=== PATIENT | male | born 1960 | race Two or more races ===

== ENCOUNTER 2019-12-20 12:50 | Inpatient (IN) | payer OTHER ==
[~2019-12-20] VITALS: Ht 170.2 cm; Wt 91.3 kg
[~2019-12-20 12:50] MED LIST: ASPI81CH43 PO; ATOR20TA PO; DIGO0.12 PO; HYDR12.56 PO; LISI2.5T47 PO
[2019-12-20] MEDS ORDERED: SODIUM CHLORIDE 0.9% 1,000 ML IV ONE ×2 (13:15→15:15)
[2019-12-20] MEDS ORDERED: cefTRIAXone 1GM/50ML D5W 50 ML IV ONE (13:30)
[2019-12-20] MEDS ORDERED: LIDOCAINE VISCOUS 2% 15ML UD MT ONE (13:45)
[2019-12-20 14:02] LABS: Basophils # (auto) 0 10 ^3/uL (0-0.2); Basophils % (auto) 0.2 % (0.0-2.0); Eosinophils # (auto) 0 10 ^3/uL (0-0.8); Hematocrit 42.5 % (41.0-53.0); Hemoglobin 14.7 g/dL (13.5-17.5); Lymphocytes # (auto) 0.5 10 ^3/uL (0.4-5.4); Lymphocytes % (auto) 3.5 % (10.0-50.0); Mean Corpuscular Hemoglobin 32.4 pg (28.0-32.0); Mean Corpuscular Hgb Conc. 34.7 g/dL (32.0-36.0); Mean Corpuscular Volume 93.4 fL (80.0-100.0); Monocytes # (auto) 0.8 10 ^3/uL (0-1.3); Monocytes % (auto) 5.1 % (0.0-12.0); Neutrophils # (auto) 13.3 10 ^3/uL (1.6-8.6); Neutrophils % (auto) 91.2 % (37.0-80.0); Nucleated Red Blood Cells % 0.1 %; Platelet Count (auto) 153 10^3/uL (140-450); Red Blood Cells 4.55 10^6/uL (4.5-5.90); Red Cell Distribution Width 13.2 % (11.8-14.3); White Blood Cell 14.6 10^3/uL (4.4-10.8)
[2019-12-20 14:18] LABS: Albumin 3.9 g/dL (3.4-5.0); Anion Gap 7 (5-15); Blood Urea Nitrogen 27 mg/dL (7-18); Calcium 8.7 mg/dL (8.5-10.1); Carbon Dioxide 24 mmol/L (21-32); Chloride 105 mmol/L (98-107); Glucose 94 mg/dL (74-106); Sodium 136 mmol/L (136-145)
[2019-12-20 14:24] LABS: Alanine Aminotransferase 45 U/L (16-61); Alkaline Phosphatase 76 U/L (45-117); Aspartate Aminotransferase 18 U/L (15-37); BUN/Creatinine Ratio 24.3; Bilirubin, Total 1.6 mg/dL (0.2-1.0); GFR African American 88 mL/min; GFR Non-African American 73 mL/min; Total Protein 7.2 g/dL (6.4-8.2)
[2019-12-20 14:55] LABS: Urine Bacteria MANY /hpf (None Seen); Urine Blood 1+ /uL (Negative); Urine Mucus FEW (None Seen); Urine Specific Gravity 1.027 (1.001-1.035); Urine WBC 195 /hpf (0 - 3)
[2019-12-20] MEDS ORDERED: MORPHINE SULF INJ 2 MG/ML SYRINGE 1ML IV PRN (15:15)
[2019-12-20] MEDS ORDERED: ONDANSETRON HCL 4 MG/2 ML VIAL IV PRN (15:15)
[2019-12-20] MEDS ORDERED: NITROGLYCERIN 0.4 MG SL TAB SL PRN (15:15)
[2019-12-20] MEDS ORDERED: SULFAMETHOX W/TRIMETH(800/160MG) DS TAB PO ONE (15:15)
[2019-12-20] MEDS ORDERED: TAMSULOSIN HYDROCHLORIDE 0.4 MG CAP PO ONE (15:15)
[2019-12-20 22:00] VITALS: BP 111/68
[2019-12-21] MEDS: ACETAMINOPHEN 325 MG TAB PO PRN ×2 (04:37→21:37)
[2019-12-21 05:00] VITALS: BP 102/60
[2019-12-21 09:00] VITALS: BP 97/55
[2019-12-21] MEDS ORDERED: POTASSIUM CHL 20 Meq TABLET PO ONE (11:00)
[2019-12-21 13:00] VITALS: BP 117/76
[2019-12-21 15:04] LABS: Basophils # (auto) 0 10 ^3/uL (0-0.2); Basophils % (auto) 0.1 % (0.0-2.0); Eosinophils # (auto) 0 10 ^3/uL (0-0.8); Eosinophils % (auto) 0.1 % (0.0-7.0); Hematocrit 39.6 % (41.0-53.0); Hemoglobin 13.7 g/dL (13.5-17.5); Lymphocytes # (auto) 0.7 10 ^3/uL (0.4-5.4); Lymphocytes % (auto) 4.1 % (10.0-50.0); Mean Corpuscular Hemoglobin 32.5 pg (28.0-32.0); Mean Corpuscular Hgb Conc. 34.7 g/dL (32.0-36.0); Mean Corpuscular Volume 93.7 fL (80.0-100.0); Monocytes # (auto) 0.8 10 ^3/uL (0-1.3); Monocytes % (auto) 4.9 % (0.0-12.0); Neutrophils # (auto) 14.7 10 ^3/uL (1.6-8.6); Neutrophils % (auto) 90.8 % (37.0-80.0); Nucleated Red Blood Cells % 0.1 %; Platelet Count (auto) 131 10^3/uL (140-450); Red Blood Cells 4.23 10^6/uL (4.5-5.90); Red Cell Distribution Width 13.1 % (11.8-14.3); White Blood Cell 16.2 10^3/uL (4.4-10.8)
[2019-12-21 16:52] VITALS: BP 109/60
[2019-12-21 22:00] VITALS: BP 115/70
[2019-12-21] MEDS ORDERED: TERAZOSIN HCL 5 MG CAP PO SCH (22:00)
[2019-12-22] MEDS: ACETAMINOPHEN 325 MG TAB PO PRN (04:24)
[2019-12-22 07:23] LABS: Potassium 3.9 mmol/L (3.5-5.1)
[2019-12-22 07:32] LABS: BUN/Creatinine Ratio 23.1; Calcium 8.6 mg/dL (8.5-10.1)
[2019-12-22 09:04] VITALS: BP 121/66
[2019-12-22 11:56] VITALS: BP 111/69
[2019-12-22 16:56] VITALS: BP 110/70
[2019-12-22] MEDS ORDERED: ACETAMINOPHEN 325 MG TAB PO PRN (18:30)
[2019-12-22] MEDS: SODIUM CHLORIDE 0.9% 1,000 ML IV SCH (18:38)
[2019-12-22] MEDS: traMADol HCL 50 MG TAB PO PRN (18:38)
[2019-12-22] MEDS: TAMSULOSIN HYDROCHLORIDE 0.4 MG CAP PO SCH (18:38)
[2019-12-22] MEDS ORDERED: cefTRIAXone 1GM/50ML D5W 50 ML IV ONE (20:00)
[2019-12-22] MEDS: SULFAMETHOX W/TRIMETH(800/160MG) DS TAB PO SCH (21:47)
[2019-12-22] MEDS: GABAPENTIN 300 MG CAP PO SCH (21:47)
[2019-12-22 22:00] VITALS: BP 129/78
[2019-12-22] MEDS ORDERED: cefTRIAXone 1GM/50ML D5W 50 ML IV SCH (22:00)
[2019-12-23] MEDS: SODIUM CHLORIDE 0.9% 1,000 ML IV SCH ×4 (01:18→20:25)
[2019-12-23 05:00] VITALS: BP 122/78
[2019-12-23] MEDS: traMADol HCL 50 MG TAB PO PRN (05:28)
[2019-12-23 08:37] VITALS: BP 130/74
[2019-12-23] MEDS ORDERED: cefTRIAXone 1GM/50ML D5W 50 ML IV SCH (09:00)
[2019-12-23] MEDS: SULFAMETHOX W/TRIMETH(800/160MG) DS TAB PO SCH ×2 (10:01→22:04)
[2019-12-23 13:25] VITALS: BP 125/82
[2019-12-23 16:51] VITALS: BP 117/50
[2019-12-23] MEDS: TAMSULOSIN HYDROCHLORIDE 0.4 MG CAP PO SCH (18:31)
[2019-12-23 22:00] VITALS: BP 110/69
[2019-12-23] MEDS: GABAPENTIN 300 MG CAP PO SCH (22:04)
[2019-12-24] MEDS: SODIUM CHLORIDE 0.9% 1,000 ML IV SCH ×3 (03:05→16:25)
[2019-12-24 05:00] VITALS: BP 130/78
[2019-12-24 09:00] VITALS: BP 135/83
[2019-12-24] MEDS: SULFAMETHOX W/TRIMETH(800/160MG) DS TAB PO SCH (10:04)
[2019-12-24 13:00] VITALS: BP 127/78
[2019-12-24] MEDS ORDERED: TAM04C PO (15:07)
[2019-12-24] MEDS ORDERED: TER5T PO (15:07)
[2019-12-24] MEDS ORDERED: SULF-92 PO (15:11)
[2019-12-24 16:15] VITALS: BP 115/70
[2019-12-24 17:00] VITALS: BP 132/84
[2019-12-24] MEDS: TAMSULOSIN HYDROCHLORIDE 0.4 MG CAP PO SCH (17:09)
== END 2019-12-24 18:02 | DRG 872 ==
LOC: EEVIPCON 12:50 → ER 12:50 → OVERFLOW 12:51 → CENTRAL 18:14
PROVIDERS: ADMIT Internal Medicine; ATTEND Internal Medicine
DX: A41.9 Sepsis, unspecified organism (principal); N13.8 Other obstructive and reflux uropathy; N30.00 Acute cystitis without hematuria; N40.1 Benign prostatic hyperplasia with lower urinary tract symptoms; R33.8 Other retention of urine; E78.5 Hyperlipidemia, unspecified; Z20.828 Contact with and (suspected) exposure to other viral communicable diseases; I95.9 Hypotension, unspecified; I10 Essential (primary) hypertension; N41.9 Inflammatory disease of prostate, unspecified; Z79.82 Long term (current) use of aspirin
CPT/HCPCS: 36415; 71045; 74176; 76775; 80048; 80053; 81001; 84153; 84154; 84484; 85025; 87086; 96361; 96365; 99291; G0378; J0696

== ENCOUNTER 2020-06-09 06:28 | Day surgery (SDC) | payer OTHER ==
[~2020-06-09] VITALS: Ht 175.3 cm; Wt 86.2 kg
[~2020-06-09 06:28] MED LIST changes: +SULF800T8 PO; +TAM04C PO; +TERA5CAP2 PO
[2020-06-09] MEDS ORDERED: CIPROFLOXACIN 400MG/200ML 200 ML IV ONE (07:19)
[2020-06-09] MEDS ORDERED: fentaNYL CITRATE 100 MCG/2 ML VL ONE (07:33)
[2020-06-09] MEDS ORDERED: MIDAZOLAM HCL 2MG/2ML 2ml VIAL (1mg/ml) ONE (07:34)
[2020-06-09] MEDS ORDERED: LIDOCAINE 2% (LOCAL ANESTH.) PF 5ml SDV ONE (07:35)
[2020-06-09] MEDS ORDERED: PROPOFOL 10 MG/ML 20 ML IV ONE (07:36)
[2020-06-09] MEDS ORDERED: ROCURONIUM 10MG/ML 10ML VIAL IV ONE (07:44)
[2020-06-09] MEDS ORDERED: ONDANSETRON HCL 4 MG/2 ML VIAL ONE (08:26)
[2020-06-09] MEDS ORDERED: HYDROmorphone HCL 2 MG/ML VL IV PRN (08:45)
[2020-06-09] MEDS ORDERED: ONDANSETRON HCL 4 MG/2 ML VIAL IV PRN (08:45)
[2020-06-09 09:15] VITALS: BP 134/91
== END 2020-06-09 09:25 | disposition home or self-care (01) ==
LOC: SUR 06:28
PROVIDERS: ATTEND Urology
DX: N40.0 Benign prostatic hyperplasia without lower urinary tract symptoms (principal); I10 Essential (primary) hypertension; M19.90 Unspecified osteoarthritis, unspecified site; Z86.73 Personal history of transient ischemic attack (TIA), and cerebral infarction without residual deficits; Z98.890 Other specified postprocedural states; Z79.899 Other long term (current) drug therapy
CPT/HCPCS: 55700; 88305; C1769; J0744; J2001; J2250; J2405; J2704; J3010; J7030; 76872